=== PATIENT | male | born 1975 | race Caucasian/White ===

== ENCOUNTER 2017-07-30 16:24 | Emergency (ER) | payer SELFPAY ==
[2017-07-30] MEDS ORDERED: Proparacaine 0.5% Ophth Soln 15 ML Bottle ONE (16:36)
[2017-07-30] MEDS ORDERED: Proparacaine 0.5% Ophth Soln 15 ML Bottle EYERT ONE (16:54)
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
[2017-07-30] MEDS ORDERED: Sodium Chloride 0.9% 1,000 ML IRR ONE ×2 (17:04)
== END 2017-07-30 17:41 | disposition home or self-care (01) ==
LOC: MW.ED 16:24
DX: T54.3X1A Toxic effect of corrosive alkalis and alkali-like substances, accidental (unintentional), initial encounter (principal); T26.61XA Corrosion of cornea and conjunctival sac, right eye, initial encounter; X58.XXXA Exposure to other specified factors, initial encounter; Y92.69 Other specified industrial and construction area as the place of occurrence of the external cause; Y99.0 Civilian activity done for income or pay
CPT/HCPCS: 99283

== ENCOUNTER 2022-12-06 09:58 | Emergency (ER) | payer BC ==
[2022-12-06] MEDS ORDERED: Sodium Chloride 0.9% 2.5 ML Syringe FLUSH PRN (10:28)
[2022-12-06] MEDS ORDERED: Sodium Chloride 0.9% 10 ML Syringe FLUSH PRN (10:28)
[2022-12-06 11:57] LABS: CARBON DIOXIDE,CO2 24.2 mmol/L (21.0-32.0); POTASSIUM,K 3.7 mmol/L (3.5-5.1)
== END 2022-12-06 12:49 | disposition home or self-care (01) ==
LOC: MW.ED 09:58
DX: R07.89 Other chest pain (principal); R00.1 Bradycardia, unspecified; F17.290 Nicotine dependence, other tobacco product, uncomplicated; Z86.79 Personal history of other diseases of the circulatory system
CPT/HCPCS: 36415; 80053; 83735; 83880; 84484; 85025; 85652; 86140; 93005; 99285; J3490; 93010; 99284